=== PATIENT | female | born 1990 | race Caucasian/White ===

== ENCOUNTER 2020-05-25 16:46 | Emergency (ER) | payer OTHER ==
[~2020-05-25] VITALS: Ht 160 cm; Wt 99.8 kg
[2020-05-25] MEDS ORDERED: ONDANSETRON HCL INJ 2MG/ML 2ML 2 MG/ML VIAL IV ONE (17:00)
[2020-05-25] MEDS ORDERED: ACETAMINOPHEN 325 MG TAB PO STA (17:00)
[2020-05-25] MEDS ORDERED: LEVOFLOXACIN 500MG/D5W 100ML 100 ML IV ONE ×2 (17:00→17:31)
[2020-05-25] MEDS ORDERED: KETOROLAC TROMETHAMINE 30 MG/ML VIAL IV ONE (17:00)
[2020-05-25] MEDS ORDERED: SODIUM CHLORIDE 0.9% 1000ML 1,000 ML IV STA (17:00)
[2020-05-25] MEDS ORDERED: TYLENOL # 31 EA PO (17:15)
[2020-05-25] MEDS ORDERED: IBUPROFEN IB200 MG PO (17:15)
[2020-05-25] MEDS ORDERED: CIPRO500 MG PO (17:15)
[2020-05-25] MEDS ORDERED: ZOFRAN4 MG SL (17:15)
--- NOTE | 2020-05-25 17:15 | Emergency Department Note ---
History of Present Illnes History of Present Illness Chief Complaint: Abdominal Complaints History of Present Illness This is a 29 year old female hx of kidney stone, stent place 1 month ago, sent over by [facility] for worsening pain and chill for few days. Arrival Mode: Car Onset (how long ago): day(s) Radiation: Reports back Severity: severe Onset quality: gradual Duration (how long): week(s) Progression: worsening Context: Reports recent surgery Relieving factors: immobilization Exacerbating factors: medication, movement Associated symptoms: Reports fever/chills Treatments prior to arrival: none Past Medical/Family History Physician Review I have reviewed the patient's past medical and family history. Any updates have been documented here. Past Medical History Recent Fever: No Clinical Suspicion of Infectio: Yes New/Unexplained Change in Ment: No Past Medical History: Kidney Stones Other Surgery: cystoscopy Social History Smoking Cessation: Smoker current status unk Any Illegal Drug Use: No TB Exposure/Symptoms: No Physically hurt or threatened: No Family History Family history of heart diseas: No Other Any Pre-Existing Lines (PICC,: No Review of Systems Review of Systems Constitutional: Reports chills, Reports malaise EENTM: Reports no symptoms Cardiovascular: Reports no symptoms Respiratory: Reports no symptoms Gastrointestinal: Reports no symptoms Genitourinary: Reports as per HPI Musculoskeletal: Reports no symptoms Integumentary: Reports no symptoms Neurological: Reports no symptoms Psychological: Reports no symptoms Endocrine: Reports no symptoms Hematological/Lymphatic: Reports no symptoms Physical Exam Related Data Allergies: Coded Allergies: ceftriaxone (Verified Allergy, Severe, anaphylaxis, 05/25/20) Vital signs reviewed: Yes Physical Exam CONSTITUTIONAL Constitutional: Present well-developed, Present well-nourished, Present distressed HENT HENT: Present normocephalic, Present atraumatic, Present oropharynx clear/moist, Present nose normal HENT L/R: Present left ext ear normal, Present right ext ear normal EYES Eyes: Reports PERRL, Reports conjunctivae normal NECK Neck: Present ROM normal PULMONARY Pulmonary: Present effort normal, Present breath sounds normal CARDIOVASCULAR Cardiovascular: Present regular rhythm, Present heart sounds normal, Present capillary refill normal, Present normal rate GASTROINTESTINAL Abdominal: Present soft, Present nontender, Present bowel sounds normal, Present right CVA tenderness GENITOURINARY Genitourinary: Present exam deferred SKIN Skin: Present warm, Present dry MUSCULOSKELETAL Musculoskeletal: Present ROM normal NEUROLOGICAL Neurological: Present alert, Present oriented x 3, Present no gross motor or sensory deficits PSYCHOLOGICAL Psychological: Present mood/affect normal, Present judgement normal Results Laboratory Lab results reviewed: Yes Laboratory comments bad UTI, pyelonephritis Imaging Imaging results reviewed: Yes Assessment & Plan Medical Decision Making MDM pyelo vs stone Reassessment Reassessment doing better. Assessment & Plan Final Impression: (1) Pyelonephritis (2) Acute pyelonephritis Depart Disposition: HOME, SELF-[facility] Meds Active Scripts Ibuprofen (IBUPROFEN IB) 200 Mg Tablet, 3 TAB PO Q6H PRN for pain, #90 Prov:DONNY VEGA MD 05/25/20 Ondansetron Hcl* (ZOFRAN*) 4 Mg Tablet, 4 MG SL Q6H PRN for NAUSEA, #14 MG 0 Refills Prov:DONNY VEGA MD 05/25/20 Acetaminophen/Codeine* (TYLENOL # 3*) 1 Ea Tab, 1 TAB PO Q4HR PRN for pain or cough, #30 Prov:DONNY VEGA MD 05/25/20 Ciprofloxacin Hcl (CIPRO) 500 Mg Tablet, 500 MG PO BID, #20 TAB 0 Refills Prov:DONNY VEGA MD 05/25/20 Medications in the ED Acetaminophen 650 mg ONCE STAT PO ; Start 05/25/20 at 17:00; Stop 05/25/20 at 17:01; Status UNV Sodium Chloride 1,000 ml @ 0 mls/hr Q0M STAT IV ; Start 05/25/20 at 17:00; Stop 05/25/20 at 17:09; Status DC Ketorolac Tromethamine 30 mg ONCE ONCE IV ; Start 05/25/20 at 17:00; Stop 05/25/20 at 17:01; Status UNV Ondansetron HCl 4 mg ONCE ONCE IV ; Start 05/25/20 at 17:00; Stop 05/25/20 at 17:01; Status UNV Levofloxacin/ Dextrose 100 ml @ 100 mls/hr NOW ONCE IV ; Start 05/25/20 at 17:00; Stop 05/25/20 at 17:59; Status UNV Physician Attestation Provider Attestation The case discussed with Dr Shelton. I offered pt admission, he rec pt to admitted as well. but she refuses. she want to go home and try out pt first. Dr Shelton will see pt (two days from now). She has Tramadol but it is not working , will add Tyl #3. [employer] score 300 DONNY VEGA MD May 25, 2020 17:15
[2020-05-25] MEDS ORDERED: KETOROLAC TROMETHAMINE 30 MG/ML VIAL ONE (17:31)
[2020-05-25] MEDS ORDERED: SODIUM CHLORIDE 0.9% 1000ML 1,000 ML ONE (17:31)
[2020-05-25] MEDS ORDERED: ACETAMINOPHEN 325 MG TAB ONE (17:31)
[2020-05-25] MEDS ORDERED: ONDANSETRON HCL INJ 2MG/ML 2ML 2 MG/ML VIAL ONE (17:31)
--- NOTE | 2020-05-25 18:13 | NUR ---
Pt understands the risks and benefits of being admitted vs going home and discussed at length with Dr. Taylor. Pt has decided to go home on antibiotics and follow up with Dr. Shelton. Pt does not want to be admitted at this time. Pt will be discharged home after IV antibiotics finish infusing.
--- NOTE | 2020-05-25 18:32 | Diagnostic Imaging Report ---
EXAM: CT Abdomen and Pelvis WITHOUT contrast INDICATION: Right renal stone with history of pyelonephritis presents with persistent pain. COMPARISON: None. TECHNIQUE: Abdomen and pelvis were scanned utilizing a multidetector helical scanner from the lung base to the pubic symphysis without administration of IV contrast. Absence of intravenous contrast decreases sensitivity for detection of focal lesions and vascular pathology. Coronal and sagittal reformations were obtained. Routine protocol was performed. IV CONTRAST: None ORAL CONTRAST: None COMPLICATIONS: None RADIATION DOSE: Total DLP: 871.91 mGy*cm Estimated effective dose: (DLP x 0.015 x size factor) mSv CTDIvol has been reviewed. It is below the limits set by the Radiation Protocol Committee (RPC). Dose modulation, iterative reconstruction, and/or weight based adjustment of the mA/kV was utilized to reduce the radiation dose to as low as reasonably achievable. FINDINGS: LINES and TUBES: None. LOWER THORAX: Unremarkable HEPATOBILIARY: No focal hepatic lesions. No biliary ductal dilation. GALLBLADDER: No radio-opaque stones or sludge. No wall thickening. SPLEEN: No splenomegaly. PANCREAS: No focal masses or ductal dilatation. ADRENALS: No adrenal nodules KIDNEYS/URETERS: There is a nephrostomy tube in the right collecting system which terminates within the urinary bladder. There is mild right hydroureteronephrosis with a 7 mm stone in the mid right ureter (series 400 image 57). The left kidney is normal for technique. GI TRACT: No abnormal distention, wall thickening, or evidence of bowel obstruction. Appendix is normal. PELVIC ORGANS/BLADDER: Unremarkable. LYMPH NODES: No lymphadenopathy. VESSELS: Unremarkable. PERITONEUM / RETROPERITONEUM: No free air or fluid. BONES: Unremarkable. SOFT TISSUES: Unremarkable. IMPRESSION: 7 mm stone in the right mid ureter which is bypassed by nephrostomy tube that terminates in the urinary bladder. There is mild right hydroureteronephrosis. Signed by: Jamel Bucio MD on 05/25/2020 6:29 PM
[2020-05-25 18:58] VITALS: BP 116/75
== END 2020-05-25 18:55 | disposition home or self-care (01) ==
LOC: FSED 16:46
DX: N10 Acute pyelonephritis (principal); N13.30 Unspecified hydronephrosis; Z87.442 Personal history of urinary calculi
CPT/HCPCS: 74176; 80053; 81003; 81025; 85025; 87086; 96374; 96375; 99284; J1885; J1956; J2405; J7030